=== PATIENT | male | born 1980 | race Caucasian/White ===

== ENCOUNTER 2016-12-06 12:49 | Emergency (ER) | payer SELFPAY ==
[2016-12-06] MEDS ORDERED: LORazepam TAB(*) 1 MG PO ONE ×2 (14:34→20:50)
[2016-12-06 14:45] LABS: Hematocrit 50 % (42-52); Hemoglobin 16.8 g/dl (14.0-18.0); Mean Corpuscular HGB Conc 33 g/dl (31-36); Mean Corpuscular Hemoglobin 32 pg (27-31); Mean Corpuscular Volume 95 fL (80-94); Mean Platelet Volume 9 um3 (7.4-10.4); Red Blood Count 5.27 10^6/ul (4.0-5.4); Red Cell Distribution Width 13 % (10.5-15); White Blood Count 11.5 10^3/ul (3.5-10.8)
[2016-12-06 14:48] LABS: Urine Bilirubin Negative (Negative); Urine Glucose Negative (Negative); Urine Nitrite Negative (Negative)
[2016-12-06 14:56] LABS: ALT 53 U/L (7-52); AST 32 U/L (13-39); Albumin 4.6 g/dL (3.2-5.2); Alkaline Phosphatase 66 U/L (34-104); Anion Gap 7 mmol/L (2-11); BUN/Creatinine Ratio 11.7 (8-20); Blood Urea Nitrogen 11 mg/dL (6-24); CO2 Carbon Dioxide 26 mmol/L (22-32); Calcium 10.2 mg/dL (8.6-10.3); Chloride 104 mmol/L (101-111); EGFR African American 116.1 (>60); EGFR Non-African American 90.3 (>60); Globulin 2.8 g/dL (2-4); Glucose 123 mg/dL (70-100); Potassium 3.9 mmol/L (3.5-5.0); Sodium 137 mmol/L (133-145); Total Protein 7.4 g/dL (6.4-8.9)
[2016-12-06 14:58] LABS: Troponin I 0.03 ng/mL (<0.04)
[2016-12-06 15:06] LABS: Acetaminophen < 15 mcg/mL; Alcohol < 10 mg/dL (<10); Salicylate < 2.50 mg/dL (<30)
[2016-12-06 15:16] LABS: Benzodiazepine Urine Screen Presumptive Positive (None Detect)
[2016-12-06 16:01] VITALS: BP 119/79
[2016-12-06] MEDS ORDERED: Nicotine PATCH 14 MG/24 HR* PATCH TRANSDERM ONE (18:36)
[2016-12-06] MEDS ORDERED: Nicotine Inhaler* 10 MG AMP INH ONE (18:36)
[2016-12-06] MEDS ORDERED: Mouth Piece, Nicotine* 1 EACH CARTRIDGE ONE (18:44)
--- NOTE | 2016-12-06 19:47 | ED ---
Jil Salazar Janilya, scribed for Alber Marin MD on 12/06/16 at 1412 . Psychiatric Complaint - HPI Summary HPI Summary: A 36 y/o male came in to [facility] c/o anxiety and panic attacks about his health that started 4-5 days ago. Pt reports the severity of his condition causes him to have CP and lose his appetite. Pt states he wakes up early at 4:30 and "it immediately kicks in". The anxiety began with worries about health. However, now pt is triggered by anything. The last worst anxiety occurred 10 years ago. Pt had 3 doses of Lexapro and Xanax last night with some relief, but it wears out. PMHx anxiety. - History Of Current Complaint Chief Complaint: EDMentalHealth Time Seen by Provider: 12/06/16 14:08 Hx Obtained From: Patient Onset/Duration: Gradual Onset, Lasting Days, Still Present Timing: Constant Severity Initially: Moderate Severity Currently: Moderate Character: Anxious Aggravating Factor(s): Nothing Alleviating Factor(s): Nothing Related History: Positive For: Prior Psychiatric Issues - anxiety Has Suicidal: Denies: Thoughts, With A Plan Has Homicidal: Denies: Thoughts, With A Plan Ingestion History: Type/Name Of Drug - Xanax and Lexapro - Risk Factor(s) Completed Suicide Risk Factors: Male, White Bulgarian - Allergies/Home Medications Allergies/Adverse Reactions: Allergies Allergy/AdvReac Type Severity Reaction Status Date / Time No Known Allergies Allergy Verified 12/06/16 12:58 Home Medications: Home Medications ALPRAZolam TAB* [Xanax TAB*] 0.5 mg PO TID PRN 12/06/16 [History Confirmed 12/06] Escitalopram Oxalate [Lexapro] 5 mg PO DAILY 12/06/16 [History Confirmed ] PMH/Surg Hx/FS Hx/Imm Hx Psychiatric History: Reports: Hx Anxiety Infectious Disease History: No Infectious Disease History: Denies: Traveled Outside the [place] in Last 30 Days - Family History Known Family History: Negative: Cardiac Disease, Hypertension, Diabetes - Social History Lives: With Family Alcohol Use: None Substance Use Type: Reports: None Smoking Status (MU): Unknown if Ever Smoked Review of Systems Positive: Chest Pain - due to anxiety attacks Gastrointestinal: Other - loss of appetite due to anxiety attacks Positive: Anxious All Other Systems Reviewed And Are Negative: Yes Physical Exam Triage Information Reviewed: Yes Vital Signs On Initial Exam: Initial Vitals Temp Pulse Resp BP Pulse Ox 98.6 F 82 16 109/82 100 12/06/16 12:50 12/06/16 12:50 12/06/16 12:50 12/06/16 12:50 12/06/16 12:50 Vital Signs Reviewed: Yes Appearance: Positive: Well-Appearing, No Pain Distress Skin: Positive: Warm, Skin Color Reflects Adequate Perfusion, Dry Head/Face: Positive: Normal Head/Face Inspection Eyes: Positive: Normal ENT: Positive: Normal ENT inspection Neck: Positive: Supple, Nontender Respiratory/Lung Sounds: Positive: Clear to Auscultation, Breath Sounds Present Cardiovascular: Positive: RRR Abdomen Description: Positive: Nontender, Soft Bowel Sounds: Positive: Present Musculoskeletal: Positive: Normal Neurological: Positive: Normal Psychiatric: Positive: Anxious - Dell Coma Scale Coma Scale Total: 15 Diagnostics - Vital Signs Vital Signs Temp Pulse Resp BP Pulse Ox 12/06/16 12:50 98.6 F 82 16 109/82 100 - Laboratory Lab Results: Lab Results 12/06/16 12/06/16 12/06/16 Range/Units 14:02 14:02 14:14 WBC 11.5 H (3.5-10.8) 10^3/ul RBC 5.27 (4.0-5.4) 10^6/ul Hgb 16.8 (14.0-18.0) g/dl Hct 50 (42-52) % MCV 95 H (80-94) fL MCH 32 H (27-31) pg MCHC 33 (31-36) g/dl RDW 13 (10.5-15) % Plt Count 203 (150-450) 10^3/ul MPV 9 (7.4-10.4) um3 Neut % (Auto) 67.9 (38-83) % Lymph % (Auto) 23.7 L (25-47) % Pershing % (Auto) 7.3 (1-9) % Eos % (Auto) 0.8 (0-6) % Baso % (Auto) 0.3 (0-2) % Absolute Neuts (auto) 7.8 H (1.5-7.7) 10^3/ul Absolute Lymphs (auto) 2.7 (1.0-4.8) 10^3/ul Absolute Monos (auto) 0.8 (0-0.8) 10^3/ul Absolute Eos (auto) 0.1 (0-0.6) 10^3/ul Absolute Basos (auto) 0 (0-0.2) 10^3/ul Absolute Nucleated RBC 0.01 10^3/ul Nucleated RBC % 0.1 Sodium (133-145) mmol/L Potassium (3.5-5.0) mmol/L Chloride (101-111) mmol/L Carbon Dioxide (22-32) mmol/L Anion Gap (2-11) mmol/L BUN (6-24) mg/dL Creatinine (0.67-1.17) mg/dL Est GFR ( Amer) (>60) Est GFR (Non-Af Amer) (>60) BUN/Creatinine Ratio (8-20) Glucose (70-100) mg/dL Calcium (8.6-10.3) mg/dL Total Bilirubin (0.2-1.0) mg/dL AST (13-39) U/L ALT (7-52) U/L Alkaline Phosphatase (34-104) U/L Troponin I (<0.04) ng/mL Total Protein (6.4-8.9) g/dL Albumin (3.2-5.2) g/dL Globulin (2-4) g/dL Albumin/Globulin Ratio (1-3) TSH (0.34-5.60) mcIU/mL Urine Color Yellow Urine Appearance Clear Urine pH 7.0 (5-9) Ur Specific Maupin 1.013 (1.010-1.030) Urine Protein Negative (Negative) Urine Ketones Negative (Negative) Urine Blood Negative (Negative) Urine Nitrate Negative (Negative) Urine Bilirubin Negative (Negative) Urine Urobilinogen Negative (Negative) Ur Leukocyte Esterase Negative (Negative) Urine Glucose Negative (Negative) Salicylates (<30) mg/dL Urine Opiates Screen None detected (None Detect) Acetaminophen mcg/mL Ur Barbiturates Screen None detected (None Detect) Ur Phencyclidine Scrn None detected (None Detect) Ur Amphetamines Screen None detected (None Detect) U Benzodiazepines Scrn Presumptive positive H (None Detect) Urine Cocaine Screen None detected (None Detect) U Cannabinoids Screen None detected (None Detect) Serum Alcohol (<10) mg/dL 12/06/16 Range/Units 14:14 WBC (3.5-10.8) 10^3/ul RBC (4.0-5.4) 10^6/ul Hgb (14.0-18.0) g/dl Hct (42-52) % MCV (80-94) fL MCH (27-31) pg MCHC (31-36) g/dl RDW (10.5-15) % Plt Count (150-450) 10^3/ul MPV (7.4-10.4) um3 Neut % (Auto) (38-83) % Lymph % (Auto) (25-47) % Pershing % (Auto) (1-9) % Eos % (Auto) (0-6) % Baso % (Auto) (0-2) % Absolute Neuts (auto) (1.5-7.7) 10^3/ul Absolute Lymphs (auto) (1.0-4.8) 10^3/ul Absolute Monos (auto) (0-0.8) 10^3/ul Absolute Eos (auto) (0-0.6) 10^3/ul Absolute Basos (auto) (0-0.2) 10^3/ul Absolute Nucleated RBC 10^3/ul Nucleated RBC % Sodium 137 (133-145) mmol/L Potassium 3.9 (3.5-5.0) mmol/L Chloride 104 (101-111) mmol/L Carbon Dioxide 26 (22-32) mmol/L Anion Gap 7 (2-11) mmol/L BUN 11 (6-24) mg/dL Creatinine 0.94 (0.67-1.17) mg/dL Est GFR ( Amer) 116.1 (>60) Est GFR (Non-Af Amer) 90.3 (>60) BUN/Creatinine Ratio 11.7 (8-20) Glucose 123 H (70-100) mg/dL Calcium 10.2 (8.6-10.3) mg/dL Total Bilirubin 0.70 (0.2-1.0) mg/dL AST 32 (13-39) U/L ALT 53 H (7-52) U/L Alkaline Phosphatase 66 (34-104) U/L Troponin I 0.03 (<0.04) ng/mL Total Protein 7.4 (6.4-8.9) g/dL Albumin 4.6 (3.2-5.2) g/dL Globulin 2.8 (2-4) g/dL Albumin/Globulin Ratio 1.6 (1-3) TSH 1.30 (0.34-5.60) mcIU/mL Urine Color Urine Appearance Urine pH (5-9) Ur Specific Maupin (1.010-1.030) Urine Protein (Negative) Urine Ketones (Negative) Urine Blood (Negative) Urine Nitrate (Negative) Urine Bilirubin (Negative) Urine Urobilinogen (Negative) Ur Leukocyte Esterase (Negative) Urine Glucose (Negative) Salicylates < 2.50 (<30) mg/dL Urine Opiates Screen (None Detect) Acetaminophen < 15 mcg/mL Ur Barbiturates Screen (None Detect) Ur Phencyclidine Scrn (None Detect) Ur Amphetamines Screen (None Detect) U Benzodiazepines Scrn (None Detect) Urine Cocaine Screen (None Detect) U Cannabinoids Screen (None Detect) Serum Alcohol < 10 (<10) mg/dL Result Diagrams: 12/06/16 14:14 12/06/16 14:14 Lab Statement: Any lab studies that have been ordered have been reviewed, and results considered in the medical decision making process. Course/Dx - Course Course Of Treatment: Silver العراقي has been medically cleared and evaluated by the [facility]. The plan is to admit him but he will need to be transferred. - Differential Dx/Clinical Impression Provider Diagnosis: Anxiety about health, Panic anxiety syndrome Discharge - Discharge Plan Condition: Stable Disposition: PSYCHIATRIC FACILITY-OTHER Discharge Disposition Comment: ! The documentation as recorded by the Jil barrios Janilya accurately reflects the service I personally performed and the decisions made by me, Alber Marin MD.
[2016-12-07] MEDS ORDERED: Nicotine Patch Removal NOTE FOLLOW UP SCH (06:00)
[2016-12-07] MEDS ORDERED: LORazepam TAB(*) 1 MG PO ONE (07:56)
[2016-12-07] MEDS ORDERED: Citalopram TAB* 10 MG PO SCH (09:00)
--- NOTE | 2016-12-07 17:09 | PN ---
Progress Note - Progress Note Note: Psychiatry update: Patient accepted for transfer to [facility] This is appropriate
[2016-12-07] MEDS ORDERED: Nicotine PATCH 7 MG/24 HR* PATCH ONE (17:17)
[2016-12-07] MEDS ORDERED: Nicotine Inhaler* 10 MG AMP ONE (17:22)
--- NOTE | 2016-12-07 20:40 | ED ---
I, Ulysses Stafford, scribed for Tab Oseguera MD on 12/07/16 at 1623 . Progress - Progress Note Progress Note: No official sign out for Mr. Silver العراقي. Approached to do paper work for transfer to another [facility] facility. Reviewed the case and been informed he is completely compliant and accepts admission and transfer. Transfer paper work needed to be done. The pt is stable and no complications are seen in the 26 hours as far as I can tell. Transfer is accepted. Simply need to do the doc to doc. The number is . - Consult/PCP Time Called: 15:29 Course/Dx - Course Course Of Treatment: Silver العراقي has been medically cleared and evaluated by the [facility]. The plan is to admit him but he will need to be transferred. - Diagnoses Provider Diagnoses: Anxiety about health, Panic anxiety syndrome The documentation as recorded by the scribeRivera Michael accurately reflects the service I personally performed and the decisions made by me, Tab Oseguera MD.
== END 2016-12-07 15:36 ==
LOC: ED 12:49
DX: F41.0 Panic disorder [episodic paroxysmal anxiety] (principal)
CPT/HCPCS: 36415; 80053; 80307; 80320; 80329; 81003; 84443; 84484; 85025; 99285; A9270-GY; G0480

== ENCOUNTER 2018-02-05 18:28 | Emergency (ER) | payer BC ==
[2018-02-05 18:36] VITALS: BP 131/87
[2018-02-05] MEDS ORDERED: oxyCODONE/Acetamin 5/325 MG* TAB PO ONE (19:34)
--- NOTE | 2018-02-05 19:47 | ED ---
Lower Extremity - HPI Summary HPI Summary: 37-year-old male presents with right foot pain today. He states he went down the stairs and missed a step. He states he inverted his ankle. His pain is greatest over his right lateral aspect of his right foot. He denies any numbness or tingling. He denies any previous fracture to the area. He states he has minimal pain until he places wait on the area. Denies any other injury. He took some ibuprofen for his pain. Pain is a 1 at rest. - History of Current Complaint Chief Complaint: EDExtremityLower Stated Complaint: RT ANKLE INJURY Time Seen by Provider: 02/05/18 18:55 Pain Intensity: 8 - Allergies/Home Medications Allergies/Adverse Reactions: Allergies Allergy/AdvReac Type Severity Reaction Status Date / Time No Known Allergies Allergy Verified 12/06/16 12:58 PMH/Surg Hx/FS Hx/Imm Hx Cardiovascular History: Denies: Hx Hypertension Psychiatric History: Reports: Hx Anxiety Denies: Hx Eating Disorder, Hx of Violent Episodes Against Others Infectious Disease History: No Infectious Disease History: Denies: Traveled Outside the [place] in Last 30 Days - Family History Known Family History: Negative: Cardiac Disease, Hypertension, Diabetes - Social History Alcohol Use: None Substance Use Type: Reports: None Smoking Status (MU): Heavy Every Day Tobacco Smoker Review of Systems Negative: Fever Negative: Chest Pain Negative: Shortness Of Breath Positive: Myalgia - right foot pain All Other Systems Reviewed And Are Negative: Yes Physical Exam Triage Information Reviewed: Yes Vital Signs On Initial Exam: Initial Vitals Temp Pulse Resp BP Pulse Ox 96.8 F 87 16 131/87 98 02/05/18 18:32 02/05/18 18:32 02/05/18 18:32 02/05/18 18:32 02/05/18 18:32 Vital Signs Reviewed: Yes Appearance: Positive: Well-Appearing Skin: Positive: Warm, Dry Head/Face: Positive: Normal Head/Face Inspection Eyes: Positive: Normal, Conjunctiva Clear Respiratory/Lung Sounds: Positive: Clear to Auscultation, Breath Sounds Present Cardiovascular: Positive: Normal, RRR Musculoskeletal: Positive: Strength/ROM Intact - Right foot with pain, Other - Good pulses, tenderness over the lateral aspect of right foot knee her calcaneus. Capillary refill less than 2 seconds, sensation grossly intact. Negative: Edema Right Neurological: Positive: Normal Psychiatric: Positive: Normal Procedures - Splinting Location: right foot Hand-Made Type: orthoglass Splint: posterior walking Pre-Proc Neuro Vasc Exam: normal Post-Proc Neuro Vasc Exam: normal Diagnostics - Vital Signs Vital Signs Temp Pulse Resp BP Pulse Ox 02/05/18 18:32 96.8 F 87 16 131/87 98 - Laboratory Lab Statement: Any lab studies that have been ordered have been reviewed, and results considered in the medical decision making process. - Radiology foot Xray Interpretation: Positive (See Comments) - IMPRESSION: NONDISPLACED FRACTURE OF THE CALCANEUS AT THE CALCANEOCUBOID ARTICULATION Radiology Interpretation Completed By: Radiologist Lower Extremity Course/Dx - Course Course Of Treatment: 37-year-old male presents with right foot pain today. He states he went down the stairs and missed a step. He states he inverted his ankle. His pain is greatest over his right lateral aspect of his right foot. He denies any numbness or tingling. He denies any previous fracture to the area. He states he has minimal pain until he places wait on the area. Denies any other injury. He took some ibuprofen for his pain. Pain is a 1 at rest. On exam tenderness over right lateral aspect of foot. Neurovascularly intact. X-ray shows nondisplaced fracture of calcaneuos at calcaneocuboid articulation. Spoke with Dr. Pastrana agrees with plan to put in a posterior splint and make not weightbearing. Dr. Pastrana will see in office. Patient understands agrees with plan. - Diagnoses Differential Diagnosis/HQI/PQRI: Positive: Fracture (Closed), Sprain, Strain Provider Diagnoses: Right calcaneal fracture Discharge - Sign-Out/Discharge Documenting (check all that apply): Discharge - Discharge Plan Condition: Good Disposition: HOME Patient Education Materials: Foot Fracture in Adults (ED) Referrals: Dylan BARCLAY,Silver Anglin [Primary Care Provider] - Tomas Pastrana MD [Medical Doctor] - Additional Instructions: Use crutches and stay nonweight bearing Keep splint on area and keep dry Call ortho office Wednesday to set up appointment for follow up Use ibuprofen for pain every 6 hours and use narcotic for breakthrough pain Ice, elevate Return to ED if develop any new or worsening symptoms - Billing Disposition and Condition Condition: GOOD Disposition: HOME
--- NOTE | 2018-02-05 19:55 | RAD ---
HISTORY: Right lateral foot pain COMPARISONS: None VIEWS: 6, Frontal, lateral, and oblique views of the right ankle and right foot FINDINGS: BONE DENSITY: Normal. BONES: There is no discrete fracture of the anterior process of the calcaneus at the calcaneocuboid articulation. JOINTS: There is no arthropathy. ALIGNMENT: There is no dislocation. SOFT TISSUES: Unremarkable. OTHER FINDINGS: None. IMPRESSION: NONDISPLACED FRACTURE OF THE CALCANEUS AT THE CALCANEOCUBOID ARTICULATION
== END 2018-02-05 21:16 | disposition home or self-care (01) ==
LOC: ED 18:28
DX: S92.001A Unspecified fracture of right calcaneus, initial encounter for closed fracture (principal); M79.671 Pain in right foot; F17.210 Nicotine dependence, cigarettes, uncomplicated; W10.9XXA Fall (on) (from) unspecified stairs and steps, initial encounter; Y92.9 Unspecified place or not applicable
CPT/HCPCS: 99282